=== PATIENT | male | born 1965 | race Caucasian/White ===

== ENCOUNTER 2022-11-01 13:46 | Emergency (ER) | payer OTHER ==
[2022-11-01 14:03] VITALS: BP 153/121; PULSE 95; O2SAT 96
[2022-11-01] MEDS ORDERED: BACIGUENT PACKET TP ONE (14:14)
[2022-11-01] MEDS ORDERED: XYLOCAINE 1% HCL 20 ML MDV IJ ONE (14:14)
[2022-11-01] MEDS ORDERED: Adacel Vial IM ONE ×2 (14:28→14:32)
[2022-11-01] MEDS ORDERED: XYLOCAINE 1% HCL 20 ML MDV ONE (14:31)
[2022-11-01] MEDS ORDERED: BACIGUENT PACKET ONE (14:31)
--- NOTE | 2022-11-01 14:34 | ERPHSYRPT ---
- History of Present Illness Time Seen by Provider: 11/01/22 14:00 Source: patient Exam Limitations: no limitations Patient Subjective Stated Complaint: pt states I was at work and cut my knee with a exacto knife Triage Nursing Assessment: pt ambulated into the er; pt is axo x4; c/o laceration; laceration to rt knee; no bleeding present to rt knee; skin PDW; no respiratory distress present; strong rt radial pulse; hypertensive Physician History: Patient is a 57-year-old white male who cut his right knee with an [employer] knife at work. The laceration is about a centimeter in length but is bleeding briskly. He has full range of motion of the knee no loss of sensation distal pulses are intact. Timing/Duration: today Quality: painful Severity: mild Location: extremities (Right lower extremity) Possible Causes: other (Laceration) Allergies/Adverse Reactions: No Known Drug Allergies Allergy (Unverified 11/01/22 13:53) Hx Tetanus, Diphtheria Vaccination/Date Given: No Hx Influenza Vaccination/Date Given: No Hx Pneumococcal Vaccination/Date Given: No Immunizations Up to Date: No Travel Risk - International Travel Have you traveled outside of the country in past 3 weeks: No - Coronavirus Screening Are you exhibiting any of the following symptoms?: No - Vaccine Status Have you recieved a Covid-19 vaccination: No - Review of Systems Constitutional: No Fever, No Chills Eyes: No Symptoms Ears, Nose, & Throat: No Symptoms Respiratory: No Cough, No Dyspnea Cardiac: No Chest Pain, No Edema, No Syncope Abdominal/Gastrointestinal: No Abdominal Pain, No Nausea, No Vomiting, No Diarrhea Genitourinary Symptoms: No Dysuria Musculoskeletal: No Back Pain, No Neck Pain Skin: Other (Laceration right knee), No Rash Neurological: No Dizziness, No Focal Weakness, No Sensory Changes Psychological: No Symptoms Endocrine: No Symptoms All Other Systems: Reviewed and Negative - Past Medical History Pertinent Past Medical History: Yes Neurological History: No Pertinent History ENT History: No Pertinent History Cardiac History: No Pertinent History Respiratory History: Asthma Endocrine Medical History: No Pertinent History Musculoskeletal History: No Pertinent History GI Medical History: No Pertinent History History: No Pertinent History Psycho-Social History: No Pertinent History Male Reproductive Disorders: No Pertinent History - Past Surgical History Past Surgical History: Yes Musculoskeletal: Orthopedic Surgery Other Surgical History: sinus 1988, knee 1984 - Social History Smoking Status: Never smoker Exposure to second hand smoke: No Drug Use: none Patient Lives Alone: Yes - Nursing Vital Signs Nursing Vital Signs: Initial Vital Signs Temperature 97 F 11/01/22 13:54 Pulse Rate 95 H 11/01/22 13:54 Respiratory Rate 18 11/01/22 13:54 Blood Pressure 153/121 11/01/22 13:54 O2 Sat by Pulse Oximetry 96 11/01/22 13:54 Pain Scale Pain Intensity 3 - Physical Exam General Appearance: no apparent distress, alert Eye Exam: PERRL/EOMI, eyes nml inspection Ears, Nose, Throat Exam: normal ENT inspection, pharynx normal, moist mucous membranes Neck Exam: normal inspection, non-tender, supple, full range of motion Respiratory Exam: airway intact, No respiratory distress Back Exam: normal inspection, normal range of motion Extremity Exam: other Neurologic Exam: alert, oriented x 3, cooperative Skin Exam: laceration (Examination of the right lower extremity shows a 1 cm vertical laceration just over the patellar tendon bleeding briskly. 1 cm laceration over the patellar tendon of the right knee) SpO2 Interpretation: normal SpO2: 96 O2 Delivery: Room Air Procedures - Laceration/Wound Repair Right Anterior Knee Time of Procedure: 14:33 Wound Location: Right, upper leg (Right knee) Wound Length (cm): 1 Wound's Depth, Shape: superficial, linear Wound Explored: clean Irrigated: Yes Hibiclens Prep: Yes Anesthesia: 1% Lidocaine Volume Anesthetic (ccs): 2 Wound Debrided: minimal Wound Repaired With: sutures Suture Size/Type: 4-0, nylon Number of Sutures: 1 Layer Closure?: No Sterile Dressing Applied?: Yes Splint Applied?: No - Course Nursing assessment & vital signs reviewed: Yes Ordered Tests: Active Orders 24 hr Category Date Time Status Wound Care STAT Care 11/01/22 14:14 Active Medication Summary Discontinued Medications Generic Name Dose Route Start Last Admin Trade Name Freq PRN Reason Stop Dose Admin Bacitracin Zinc 0.9 each 11/01/22 14:14 Bacitracin Packet 1 Each Pckt TP 11/01/22 14:15 STAT ONE Diphtheria/Tetanus/Acell Pertussis 0.5 ml 11/01/22 14:28 Tdap --Diph,Pertuss(Acell),Tet Vac/Pf 0.5 Ml Vial IM 11/01/22 14:29 .ONCE ONE Lidocaine HCl 5 ml 11/01/22 14:14 Lidocaine Hcl 1% 20 Ml Mdv 20 Ml Ml IJ 11/01/22 14:15 STAT ONE - Progress Progress: improved Medical Desision Making - Risk of complications Minimal Risk: Minimal risk of morbidity - Departure Departure Disposition: Home Clinical Impression: Laceration of right knee Condition: Stable Critical Care Time: No Referrals: GIBRAN PATTERSON [facility] [Primary Care Provider] - Follow up/PCP as directed Instructions: Wound Care (DC), Laceration Repair With Stitches (DC) Additional Instructions: Sutures out in 10 days watch for infection keep the wound clean
== END 2022-11-01 14:45 | disposition home or self-care (01) ==
LOC: ED 13:46
DX: S81.011A Laceration without foreign body, right knee, initial encounter (principal); W26.0XXA Contact with knife, initial encounter; Y99.0 Civilian activity done for income or pay; Z28.310 Unvaccinated for COVID-19; Z23 Encounter for immunization
CPT/HCPCS: 12001; 90471; 90715; 96372; 99283; A9270-GY